=== PATIENT | male | born 1960 | race Caucasian/White ===

== ENCOUNTER → 2016-08-08 | Outpatient (CLI) | payer OTHER | LOC: HEART 5 15:25 | DX: I25.10 Atherosclerotic heart disease of native coronary artery without angina pectoris (principal) | CPT/HCPCS: 93306 ==

== ENCOUNTER 2020-04-20 12:16 | Inpatient (IN) | payer OTHER ==
[~2020-04-20] VITALS: Ht 177.8 cm; Wt 74.6 kg
[2020-04-20 14:50] LABS: HEMOGLOBIN 14.4 gm/dl (14.0-17.5); RED BLOOD COUNT 4.49 M/UL (4.20-5.50); WHITE BLOOD COUNT 12.5 K/UL (4.5-11.0)
[2020-04-20 15:11] LABS: BUN/CREATININE RATIO 16 (0-10)
[2020-04-20] MEDS ORDERED: ASPIRIN CHEWABL81 MG PO (16:06)
[2020-04-20] MEDS ORDERED: LIPITOR TAB 2020 MG PO (16:06)
[2020-04-20] MEDS ORDERED: PLAVIX75 MG PO (16:06)
[2020-04-20] MEDS ORDERED: COZAAR 25MG TAB25 MG PO (16:07)
[2020-04-20] MEDS ORDERED: LEVOTHYROXINE200 MC2 PO (16:07)
[2020-04-20] MEDS ORDERED: GLUCOPHAGE 850850 MG PO (16:08)
[2020-04-20] MEDS ORDERED: VENTOLIN HFA 66.7 GM INH (16:09)
[2020-04-20] MEDS ORDERED: TOPROL XL25 MG PO (16:09)
[2020-04-20] MEDS ORDERED: VITAMIN D21250 MCG PO (16:10)
[2020-04-21 06:26] LABS: HEMOGLOBIN 13.6 gm/dl (14.0-17.5); RED BLOOD COUNT 4.26 M/UL (4.20-5.50)
[2020-04-21 06:27] LABS: WHITE BLOOD COUNT 8.7 K/UL (4.5-11.0)
[2020-04-21 07:04] LABS: BUN/CREATININE RATIO 22 (0-10)
[2020-04-22 06:00] LABS: RED BLOOD COUNT 4.08 M/UL (4.20-5.50)
[2020-04-22 06:30] LABS: WHITE BLOOD COUNT 19.8 K/UL (4.5-11.0)
[2020-04-22 06:34] LABS: BUN/CREATININE RATIO 29 (0-10)
[2020-04-23 04:06] LABS: HEMOGLOBIN 12.8 gm/dl (14.0-17.5); RED BLOOD COUNT 4.05 M/UL (4.20-5.50); WHITE BLOOD COUNT 18.4 K/UL (4.5-11.0)
[2020-04-23 04:33] LABS: BUN/CREATININE RATIO 26 (0-10)
[2020-04-26 02:54] LABS: HEMOGLOBIN 13.5 gm/dl (14.0-17.5); RED BLOOD COUNT 4.31 M/UL (4.20-5.50); WHITE BLOOD COUNT 17.8 K/UL (4.5-11.0)
[2020-04-26 03:14] LABS: BUN/CREATININE RATIO 28 (0-10)
[2020-04-26] MEDS ORDERED: DECADRON6 MG PO (17:34)
[2020-04-26] MEDS ORDERED: BENZONATATE100 MG PO (17:34)
[2020-04-26] MEDS ORDERED: NICOTINE PATCH1 EAC1 TD (17:34)
--- NOTE | 2020-04-27 09:38 | NUR ---
WENT INTO PATIENT ROOM TO EVALUATE OXYGENY SATURATION, PATIENT OXYGENT SATURATION WITH OXYGEN ON STARTING OUT WAS ON 98% ON 3L HIGH FLOW CANNUAL, REMOVED PATIENTS OXYGEN AND WE WALKED AROUND THE ROOM PATIENT OXYGEN DROPPED TO 89% WIHTOUT OXYGEN. PLACED PATIENT BACK ON OXYGEN AFTER EVALUATING.
== END 2020-04-27 15:13 | disposition home or self-care (01) | DRG 177 ==
LOC: ER1 12:16 → CDU 15:00 → MED SURG 4 15:00
PROVIDERS: Emergency Medicine; ADMIT Internal Medicine Infectious Disease
PROC: XW033E5 Introduction of Remdesivir Anti-infective into Peripheral Vein, Percutaneous Approach, New Technology Group 5 (ICD-10-PCS; principal; 2020-04-20)
PROC: XW13325 Transfusion of Convalescent Plasma (Nonautologous) into Peripheral Vein, Percutaneous Approach, New Technology Group 5 (ICD-10-PCS; 2020-04-20)
PROC: 8E0ZXY6 Isolation (ICD-10-PCS; 2020-04-20)
DX: U07.1 COVID-19 (principal); J12.82 Pneumonia due to coronavirus disease 2019; J96.01 Acute respiratory failure with hypoxia; I25.10 Atherosclerotic heart disease of native coronary artery without angina pectoris; E03.9 Hypothyroidism, unspecified; F17.210 Nicotine dependence, cigarettes, uncomplicated; Z79.01 Long term (current) use of anticoagulants; T38.0X5A Adverse effect of glucocorticoids and synthetic analogues, initial encounter; E09.65 Drug or chemical induced diabetes mellitus with hyperglycemia; E78.5 Hyperlipidemia, unspecified; Z79.899 Other long term (current) drug therapy; Z79.82 Long term (current) use of aspirin; Z95.5 Presence of coronary angioplasty implant and graft; I25.2 Old myocardial infarction
CPT/HCPCS: 36415; 36600; 71045; 80053; 82550; 82553; 82803; 82962; 83036; 83735; 83874; 83880; 84443; 84484; 85025; 85027; 85379; 85610; 86140; 86900; 86901; 86927; 93005; 96365; 96366; 96372; 96375; 96376; 99285; G0378; J1100; J1650; J7030

== ENCOUNTER → 2020-06-02 | Outpatient (CLI) | payer OTHER ==
[~2020-06-02] MED LIST: ASPIRIN CHEWABL81 MG PO; BENZONATATE100 MG PO; COZAAR 25MG TAB25 MG PO; DECADRON6 MG PO; GLUCOPHAGE 850850 MG PO; LEVOTHYROXINE200 MC2 PO; LIPITOR TAB 2020 MG PO; NICOTINE PATCH1 EAC1 TD; PLAVIX75 MG PO; TOPROL XL25 MG PO; VENTOLIN HFA 66.7 GM INH; VITAMIN D21250 MCG PO
== END ==
LOC: EXRD 11:28
DX: U07.1 COVID-19 (principal); J12.82 Pneumonia due to coronavirus disease 2019; R91.8 Other nonspecific abnormal finding of lung field
CPT/HCPCS: 71046

== ENCOUNTER → 2021-01-25 | Outpatient (CLI) | payer OTHER | LOC: HEART 5 09:51 | DX: I25.10 Atherosclerotic heart disease of native coronary artery without angina pectoris (principal); I51.9 Heart disease, unspecified; U09.9 Post COVID-19 condition, unspecified | CPT/HCPCS: 93306 ==

== ENCOUNTER → 2021-07-06 | Outpatient (CLI) | payer OTHER | LOC: KOH-I 11:27 | DX: F17.200 Nicotine dependence, unspecified, uncomplicated (principal) | CPT/HCPCS: 71271 ==

== ENCOUNTER → 2021-08-03 | Outpatient (CLI) | payer OTHER | LOC: HEART 5 09:41 | DX: R06.02 Shortness of breath (principal); J44.9 Chronic obstructive pulmonary disease, unspecified; F17.200 Nicotine dependence, unspecified, uncomplicated; R94.2 Abnormal results of pulmonary function studies | CPT/HCPCS: 94010 ==

== ENCOUNTER → 2021-11-30 | Outpatient (CLI) | payer OTHER | LOC: MRI 15:46 | DX: M25.511 Pain in right shoulder (principal); M25.611 Stiffness of right shoulder, not elsewhere classified | CPT/HCPCS: 73221 ==